=== PATIENT | female | born 1955 | race Caucasian/White ===

== ENCOUNTER 2017-03-07 16:53 | Emergency (ER) | payer BC ==
[2017-03-07 16:57] VITALS: RESP 16; O2SAT 96
[2017-03-07] MEDS ORDERED: ONDANSETRON 4 MG/2 ML VIAL IVP ONE (17:04)
[2017-03-07] MEDS ORDERED: NS 1,000 ML IV ONE (17:04)
[2017-03-07] MEDS ORDERED: HYDROmorphONE/DILAUDID 1 MG/ML SYR IVP ONE (17:04)
--- NOTE | 2017-03-07 17:04 | EDPHY ---
H & P Stated Complaint: R sided abd pain HPI/ROS: HPI CHIEF COMPLAINT: Abdominal pain HISTORY OF PRESENT ILLNESS: This patient is a 55-year-old female no significant medical history does not take any daily medications she presents emergency room with 24 hours of right-sided abdominal pain. Describes a dull ache. Tells me she takes a deep breath in hurts the right side of her abdomen. At time she has referred pain to her right shoulder. This started yesterday while flying from [place] to [place]. She lives here. She has not had any vomiting. She did have some diarrhea yesterday. No fever. No chest pain or shortness of breath. No pleuritic pain. No cough. Pain is located right lower quadrant right upper quadrant. Past Medical History: No significant medical history except for fecal incontinence and has a [employer] device to help with sphincter control. Past Surgical History: Denies recent surgery, no abdominal surgeries Social History: Denies daily use of drugs alcohol tobacco products. Family History: Noncontributory ROS REVIEW OF SYSTEMS: A comprehensive 10 point review of systems is otherwise negative aside from elements mentioned in the history of present illness. Exam Constitutional triage nursing summary reviewed, vital signs reviewed, awake/ alert. Eyes normal conjunctivae and sclera, EOMI, PERRLA. HENT normal inspection, atraumatic, moist mucus membranes, no epistaxis, neck supple/ no meningismus, no raccoon eyes. Respiratory clear to auscultation bilaterally, normal breath sounds, no respiratory distress, no wheezing. Cardiovascular rate normal, regular rhythm, no murmur, no edema, distal pulses normal. Gastrointestinal tender palpation right lower quadrant and right upper quadrant,, no rebound, no guarding, normal bowel sounds, no distension, no pulsatile mass. Genitourinary no CVA tenderness. Musculoskeletal no midline vertebral tenderness, full range of motion, no calf swelling, no tenderness of extremities, no meningismus, good pulses, neurovascularly intact. Skin pink, warm, & dry, no rash, skin atraumatic. Neurologic awake, alert and oriented x 3, AAOx3, moves all 4 extremities equally, motor intact, sensory intact, CN II-XII intact, normal cerebellar, normal vision, normal speech. Psychiatric normal mood/affect. Heme/Lymph/Immune no lymphadenopathy. Differential diagnosis includes but is not limited to and in no particular order : Bowel obstruction, appendicitis, gallbladder disease, diverticulitis, colitis , enteritis, perforated viscus, gastritis, GERD, esophagitis, urinary tract infection, pyelonephritis, kidney stones Medical Decision Making: Plan for this patient IV establishment, IV fluid bolus , check abdominal blood work, CT abdomen pelvis with IV contrast re-evaluate. Re-evaluation: EKG interpretation by me on record in [facility] system. Impression time of EKG 172, this is sinus bradycardia rate of 49 no acute ischemia. Unremarkable EKG. CT scan of the abdomen pelvis with IV contrast The results of the study are this shows possible gastritis, as well as small bowel loops that are filled with fluid concerning for an enteritis. There is minimal free fluid worsens pouch, right pericolic gutter. The gallbladder is contracted cannot get a good visualization of this. Recommend ultrasound which will perform.. The study was read by Dr. Akhtar. I viewed the images myself on the PACS system. 1855: I did re-evaluate the patient she is resting comfortably. No vomiting. Abdomen remains mildly tender but no guarding or peritoneal signs. I did discuss at length about her CT scans most likely enteritis versus gastritis. Contracted gallbladder will perform ultrasound to rule out gallbladder disease however blood work is reassuring. She does not have a fever here. No white count. Electrolytes appropriate, bilirubin normal. Liver enzymes normal. She is supposed to go to [employer] tomorrow for a yoga event I explained she should not and rest bland diet and strict return precautions were given to the patient she understands return immediately to the emergency room she develops worsening abdominal pain, fever, vomiting. 1951: Re-evaluation patient resting comfortably at this time. Back from ultrasound. Ultrasound is unremarkable. Discussed workup here in emergency room blood work CT scan and ultrasound. Understands that if she has worsening abdominal pain fever vomiting she needs return to the emergency room. Source: Patient - Personal History Current Tetanus/Diphtheria Vaccine: Yes Current Tetanus Diphtheria and Acellular Pertussis (TDAP): Yes - Medical/Surgical History Hx Asthma: No Hx Chronic Respiratory Disease: No Hx Diabetes: No Hx Cardiac Disease: No Hx Renal Disease: No Hx Cirrhosis: No Hx Alcoholism: No Hx HIV/AIDS: No Hx Splenectomy or Spleen Trauma: No Other PMH: anxiety - Social History Smoking Status: Never smoked Constitutional: Initial Vital Signs Temperature (C) 36.7 C 03/07/17 16:55 Heart Rate 57 L 03/07/17 16:55 Respiratory Rate 16 03/07/17 16:55 Blood Pressure 92/64 L 03/07/17 16:55 O2 Sat (%) 96 03/07/17 16:55 O2 Delivery Mode Room Air Allergies/Adverse Reactions: Penicillins Allergy (Verified 03/07/17 16:57) Home Medications: Medication Instructions Recorded Ondansetron HCl [Zofran] 4 mg PO Q4-6PRN PRN #10 tablet 03/07/17 Medical Decision Making - Diagnostics Imaging Results: Imaging Impressions Abdomen CT 03/07/17 17:10 Impression: 1. Contracted gallbladder with questionable thickened wall. If the patient is tender in this region then consider right upper quadrant ultrasound to evaluate for possible gallstones and gallbladder tenderness. Rule out cholecystitis. 2. No CT evidence of appendicitis, abscess or bowel obstruction. 3. Thickening associated with the gastric body and antrum. Rule out gastritis or less likely ulcer. 4. Fluid-filled loops of mildly dilated small bowel proximally with some fluid- filled loops of distal small bowel without distention. Rule out enteritis. Findings discussed with Zay Proctor MD at 18:41 hour, 03/07/2017. - Data Points Laboratory Results: Laboratory Results 03/07/17 17:20 03/07/17 17:20 03/07/17 03/07/17 03/07/17 17:20 17:20 17:20 WBC 7.86 10^3/uL 10^3/uL (3.80-9.50) RBC 4.11 10^6/uL L 10^6/uL (4.18-5.33) Hgb 12.9 g/dL g/dL (12.6-16.3) Hct 37.4 % L % (38.0-47.0) MCV 91.0 fL fL (81.5-99.8) MCH 31.4 pg pg (27.9-34.1) MCHC 34.5 g/dL g/dL (32.4-36.7) RDW 12.7 % % (11.5-15.2) Plt Count 173 10^3/uL 10^3/uL (150-400) MPV 10.0 fL fL (8.7-11.7) Neut % (Auto) 64.1 % % (39.3-74.2) Lymph % (Auto) 25.1 % % (15.0-45.0) [place] % (Auto) 7.5 % % (4.5-13.0) Eos % (Auto) 2.7 % % (0.6-7.6) Baso % (Auto) 0.5 % % (0.3-1.7) Nucleat RBC Rel Count 0.0 % % (0.0-0.2) Absolute Neuts (auto) 5.04 10^3/uL 10^3/uL (1.70-6.50) Absolute Lymphs (auto) 1.97 10^3/uL 10^3/uL (1.00-3.00) Absolute Monos (auto) 0.59 10^3/uL 10^3/uL (0.30-0.80) Absolute Eos (auto) 0.21 10^3/uL 10^3/uL (0.03-0.40) Absolute Basos (auto) 0.04 10^3/uL 10^3/uL (0.02-0.10) Absolute Nucleated RBC 0.00 10^3/uL 10^3/uL (0-0.01) Immature Gran % 0.1 % % (0.0-1.1) Immature Gran # 0.01 10^3/uL 10^3/uL (0.00-0.10) PT 12.6 SEC SEC (12.0-15.0) INR 0.95 (0.83-1.16) APTT 26.2 SEC SEC (23.0-38.0) VBG Lactic Acid Sodium 138 mEq/L mEq/L (134-144) Potassium 3.7 mEq/L mEq/L (3.5-5.2) Chloride 102 mEq/L mEq/L (97-110) Carbon Dioxide 25 mEq/l mEq/l (22-31) Anion Gap 11 mEq/L mEq/L (8-16) BUN 11 mg/dL mg/dL (7-23) Creatinine 0.7 mg/dL mg/dL (0.6-1.0) Estimated GFR > 60 Glucose 86 mg/dL mg/dL (70-100) Calcium 9.8 mg/dL mg/dL (8.5-10.4) Total Bilirubin 0.8 mg/dL mg/dL (0.1-1.4) Conjugated Bilirubin 0.2 mg/dL mg/dL (0.0-0.5) Unconjugated Bilirubin 0.6 mg/dL mg/dL (0.0-1.1) AST 36 IU/L IU/L (14-46) ALT 45 IU/L IU/L (9-52) Alkaline Phosphatase 78 IU/L IU/L (38-126) Troponin I < 0.012 ng/mL ng/mL (0-0.034) Total Protein 6.8 g/dL g/dL (6.3-8.2) Albumin 4.4 g/dL g/dL (3.5-5.0) Lipase 57.0 IU/L IU/L (23-300) 03/07/17 17:20 WBC RBC Hgb Hct MCV MCH MCHC RDW Plt Count MPV Neut % (Auto) Lymph % (Auto) [place] % (Auto) Eos % (Auto) Baso % (Auto) Nucleat RBC Rel Count Absolute Neuts (auto) Absolute Lymphs (auto) Absolute Monos (auto) Absolute Eos (auto) Absolute Basos (auto) Absolute Nucleated RBC Immature Gran % Immature Gran # PT INR APTT VBG Lactic Acid 0.8 mmol/L mmol/L (0.7-2.1) Sodium Potassium Chloride Carbon Dioxide Anion Gap BUN Creatinine Estimated GFR Glucose Calcium Total Bilirubin Conjugated Bilirubin Unconjugated Bilirubin AST ALT Alkaline Phosphatase Troponin I Total Protein Albumin Lipase Medications Given: Discontinued Medications Hydromorphone HCl (Dilaudid) 0.5 mg IVP EDNOW ONE Stop: 03/07/17 17:05 Last Admin: 03/07/17 17:58 Dose: Not Given Sodium Chloride (Ns) 1,000 mls @ 0 mls/hr IV EDNOW ONE; Wide Open PRN Reason: Protocol Stop: 03/07/17 17:05 Last Admin: 03/07/17 17:22 Dose: 1,000 mls Ondansetron HCl (Zofran) 4 mg IVP EDNOW ONE Stop: 03/07/17 17:05 Last Admin: 03/07/17 17:59 Dose: Not Given Departure - Departure Disposition: Home, Routine, Self-Care Clinical Impression: Abdominal pain Qualifiers: Abdominal location: generalized Qualified Code(s): R10.84 - Generalized abdominal pain Condition: Good Instructions: Acute Abdominal Pain (ED) Additional Instructions: 1.[place] diet take it easy the next 24-48 hours. 2. Return emergency room if he develops worsening abdominal pain, fever, vomiting. 3. No spicy fatty greasy foods. I do not recommend he go to [place] to the yoga festival until you are feeling better. Referrals: AYUSH CORDOVA [Other] - As per Instructions Prescriptions: Ondansetron HCl [Zofran] 4 mg PO Q4-6PRN PRN #10 tablet PRN Reason: Nausea/Vomiting, Use 1st
--- NOTE | 2017-03-07 17:31 | CPEKG ---
Heart Rate: 49 RR Interval: 1224 P-R Interval: 172 QRSD Interval: 78 QT Interval: 460 QTC Interval: 416 P [place]: 69 QRS [place]: 62 T Wave [place]: 63 EKG Severity - OTHERWISE NORMAL ECG - EKG Impression: SINUS BRADYCARDIA Electronically Signed By: Jose Alfredo Seth 08-Mar-2017 07:46:10
[2017-03-07 17:33] LABS: % IMMATURE GRANULYOCYTES 0.1 % (0.0-1.1); ABSOLUTE IMMATURE GRANULOCYTES 0.01 10^3/uL (0.00-0.10); ADD DIFF? NO; ADD MORPH? NO; ADD SCAN? NO; ATYPICAL LYMPHOCYTE FLAG 20 (0-99); FRAGMENT RBC FLAG 0 (0-99); HEMATOCRIT 37.4 % (38.0-47.0); HEMOGLOBIN 12.9 g/dL (12.6-16.3); LEFT SHIFT FLG 0 (0-99); LIPEMIA HEMOLYSIS FLAG 90 (0-99); MEAN CELL HEMOGLOBIN 31.4 pg (27.9-34.1); MEAN CELL HEMOGLOBIN CONCENTR. 34.5 g/dL (32.4-36.7); PLATELET CLUMPS FLAG 0 (0-99); PLATELET COUNT 173 10^3/uL (150-400); RED BLOOD CELL COUNT 4.11 10^6/uL (4.18-5.33); RED CELL DISTRIBUTION WIDTH 12.7 % (11.5-15.2)
[2017-03-07 17:46] LABS: ALANINE AMINOTRANSFERASE 45 IU/L (9-52); ALBUMIN 4.4 g/dL (3.5-5.0); ALKALINE PHOSPHATASE 78 IU/L (38-126); ANION GAP 11 mEq/L (8-16); ASPARTATE AMINOTRANSFERASE 36 IU/L (14-46); BILIRUBIN,TOTAL 0.8 mg/dL (0.1-1.4); BILIRUBIN-CONJUGATED 0.2 mg/dL (0.0-0.5); BILIRUBIN-UNCONJUGATED 0.6 mg/dL (0.0-1.1); CALCIUM 9.8 mg/dL (8.5-10.4); CARBON DIOXIDE 25 mEq/l (22-31); CHLORIDE 102 mEq/L (97-110); CREATININE 0.7 mg/dL (0.6-1.0); GLOMERULAR FILTRATION RATE > 60; GLUCOSE 86 mg/dL (70-100); POTASSIUM 3.7 mEq/L (3.5-5.2); SODIUM 138 mEq/L (134-144); TOTAL PROTEIN 6.8 g/dL (6.3-8.2)
[2017-03-07 17:49] LABS: INR 0.95 (0.83-1.16); PROTIME(PATIENT) 12.6 SEC (12.0-15.0)
[2017-03-07 17:50] LABS: APTT 26.2 SEC (23.0-38.0)
[2017-03-07 17:57] LABS: TROPONIN I < 0.012 ng/mL (0-0.034)
[2017-03-07] MEDS ORDERED: IOPAMIDOL (ISOVUE-300) 100 ML BTL ONE (18:04)
[2017-03-07 20:12] VITALS: BP 105/62; PULSE 49; TEMP 98.2
== END 2017-03-07 20:11 | disposition home or self-care (01) ==
DX: R10.84 Generalized abdominal pain (principal); E86.9 Volume depletion, unspecified
CPT/HCPCS: Q9967

== ENCOUNTER 2017-03-08 21:48 | Emergency (ER) | payer BC ==
[2017-03-08 22:05] VITALS: RESP 18; TEMP 98.2
[2017-03-08] MEDS ORDERED: ONDANSETRON 4 MG/2 ML VIAL IVP ONE (22:28)
[2017-03-08] MEDS ORDERED: KETOROLAC 30 MG/1 ML SDV IVP ONE (22:28)
[2017-03-08] MEDS ORDERED: NS 1,000 ML IV ONE (22:28)
--- NOTE | 2017-03-08 22:30 | EDPHY ---
H & P Stated Complaint: abd pain and N continued with frontal PETERS Time Seen by Provider: 03/08/17 22:13 HPI/ROS: HPI The patient presents with diffuse abdominal pain which began yesterday and is throughout her abdomen, described as intense, sharp, in her lower abdomen and also in her right upper quadrant. This is associated with nausea and generalized anorexia. She does not have any vomiting, diarrhea, fevers or chills. She is complaining of a mild frontal headache as well. She was seen in the emergency room yesterday for similar symptoms. She had a CT scan of her abdomen pelvis with IV contrast which demonstrated gastritis and enteritis. She had a right upper quadrant ultrasound that was unremarkable. She felt well enough to go home, however her pain has returned.. REVIEW OF SYSTEMS Constitutional: No fever, no chills. Eyes: No discharge. ENT: No sore throat. Cardiovascular: No chest pain, no palpitations. Respiratory: No cough, no shortness of breath. Gastrointestinal: See HPI Genitourinary: No hematuria. Musculoskeletal: No back pain. Skin: No rashes. Neurological: No headache. PMHx: Healthy Soc Hx: Visiting from [place] PHYSICAL General Appearance: Alert, no distress Eyes: Pupils equal and round no pallor or injection ENT, Mouth: Mucous membranes moist Respiratory: There are no retractions, lungs are clear to auscultation Cardiovascular: Regular rate and rhythm Gastrointestinal: Abdomen is soft with mild tenderness in the lower quadrants, no masses, bowel sounds normal Neurological: A&O, moves all extremities Skin: Warm and dry, no rashes Musculoskeletal: Neck is supple non tender Extremities: symmetrical, full range of motion Psychiatric: Patient is oriented X 3, there is no agitation Source: Patient Exam Limitations: No limitations - Personal History Current Tetanus/Diphtheria Vaccine: Yes Tetanus Vaccine Date: 2013 - Medical/Surgical History Hx Asthma: No Hx Chronic Respiratory Disease: No Hx Diabetes: No Hx Cardiac Disease: No Hx Renal Disease: No Hx Cirrhosis: No Hx Alcoholism: No Hx HIV/AIDS: No Hx Splenectomy or Spleen Trauma: No Other PMH: anxiety - Social History Smoking Status: Never smoked Constitutional: Initial Vital Signs Temperature (C) 36.8 C 03/08/17 22:03 Heart Rate 60 03/08/17 22:03 Respiratory Rate 18 03/08/17 22:03 Blood Pressure 89/46 L 03/08/17 22:03 O2 Sat (%) 100 03/08/17 22:03 O2 Delivery Mode Room Air Allergies/Adverse Reactions: Penicillins Allergy (Verified 03/07/17 16:57) Home Medications: Medication Instructions Recorded Ondansetron HCl [Zofran] 4 mg PO Q4-6PRN PRN #10 tablet 03/07/17 Famotidine [Pepcid 20 MG (*)] 20 mg PO BID #30 tab 03/09/17 Medical Decision Making - Diagnostics Imaging Results: Imaging Impressions Chest X-Ray 03/08/17 22:27 Impression: No acute findings in the chest. Chest/Thorax CTA 03/08/17 23:49 Impression: 1. No visible pulmonary embolus. 2. Bronchitis with trace effusions. 3. Additional findings as above. Findings discussed with Roro Palmer MD 03/09/2017 at 0:21. Imaging: Discussed imaging studies w/ call center director Radiologist, I viewed and interpreted images myself Differential Diagnosis: This is a healthy 61-year-old female who presents with recurrent diffuse abdominal pain, had an evaluation yesterday in the ER including labs and imaging all relatively unremarkable, enteritis and gastritis demonstrated on her CT scan. Differential diagnosis includes gastritis or enteritis, pulmonary embolism, pleural effusion, ovarian cyst. In the emergency room, the patient was given IV fluids and Zofran. She was given a dose of Toradol with some improvement in her symptoms. Labs were checked and were unremarkable except for D-dimer which was elevated. Because of her recent travel and her symptoms, CT scan of her chest was performed which was normal. I have explained this to her. She will be discharged with instructions for hydration. I feel her symptoms likely stem from a GI process. - Data Points Laboratory Results: Laboratory Results 03/08/17 22:40 03/08/17 22:40 03/09/17 03/08/17 03/08/17 00:30 22:40 22:40 WBC RBC Hgb Hct MCV MCH MCHC RDW Plt Count MPV Neut % (Auto) Lymph % (Auto) [place] % (Auto) Eos % (Auto) Baso % (Auto) Nucleat RBC Rel Count Absolute Neuts (auto) Absolute Lymphs (auto) Absolute Monos (auto) Absolute Eos (auto) Absolute Basos (auto) Absolute Nucleated RBC Immature Gran % Immature Gran # D-Dimer 1.20 ug/mLFEU H ug/mLFEU (0.00-0.50) Sodium 137 mEq/L mEq/L (134-144) Potassium 3.4 mEq/L L mEq/L (3.5-5.2) Chloride 103 mEq/L mEq/L (97-110) Carbon Dioxide 24 mEq/l mEq/l (22-31) Anion Gap 10 mEq/L mEq/L (8-16) BUN 16 mg/dL mg/dL (7-23) Creatinine 0.8 mg/dL mg/dL (0.6-1.0) Estimated GFR > 60 Glucose 101 mg/dL H mg/dL (70-100) Calcium 9.1 mg/dL mg/dL (8.5-10.4) Total Bilirubin 1.0 mg/dL mg/dL (0.1-1.4) Conjugated Bilirubin 0.3 mg/dL mg/dL (0.0-0.5) Unconjugated Bilirubin 0.7 mg/dL mg/dL (0.0-1.1) AST 38 IU/L IU/L (14-46) ALT 43 IU/L IU/L (9-52) Alkaline Phosphatase 81 IU/L IU/L (38-126) Total Protein 6.3 g/dL g/dL (6.3-8.2) Albumin 4.0 g/dL g/dL (3.5-5.0) Lipase 34.0 IU/L IU/L (23-300) Urine Color PALE YELLOW Urine Appearance CLEAR Urine pH 6.0 (5.0-7.5) Ur Specific [place] 1.034 H (1.002-1.030) Urine Protein NEGATIVE (NEGATIVE) Urine Ketones TRACE H (NEGATIVE) Urine Blood NEGATIVE (NEGATIVE) Urine Nitrate NEGATIVE (NEGATIVE) Urine Bilirubin NEGATIVE (NEGATIVE) Urine Urobilinogen NEGATIVE EU EU (0.2-1.0) Ur Leukocyte Esterase NEGATIVE (NEGATIVE) Urine Glucose NEGATIVE (NEGATIVE) 03/08/17 22:40 WBC 8.65 10^3/uL 10^3/uL (3.80-9.50) RBC 3.92 10^6/uL L 10^6/uL (4.18-5.33) Hgb 12.2 g/dL L g/dL (12.6-16.3) Hct 35.9 % L % (38.0-47.0) MCV 91.6 fL fL (81.5-99.8) MCH 31.1 pg pg (27.9-34.1) MCHC 34.0 g/dL g/dL (32.4-36.7) RDW 13.0 % % (11.5-15.2) Plt Count 142 10^3/uL L 10^3/uL (150-400) MPV 10.1 fL fL (8.7-11.7) Neut % (Auto) 79.1 % H % (39.3-74.2) Lymph % (Auto) 12.0 % L % (15.0-45.0) [place] % (Auto) 6.7 % % (4.5-13.0) Eos % (Auto) 1.8 % % (0.6-7.6) Baso % (Auto) 0.1 % L % (0.3-1.7) Nucleat RBC Rel Count 0.0 % % (0.0-0.2) Absolute Neuts (auto) 6.83 10^3/uL H 10^3/uL (1.70-6.50) Absolute Lymphs (auto) 1.04 10^3/uL 10^3/uL (1.00-3.00) Absolute Monos (auto) 0.58 10^3/uL 10^3/uL (0.30-0.80) Absolute Eos (auto) 0.16 10^3/uL 10^3/uL (0.03-0.40) Absolute Basos (auto) 0.01 10^3/uL L 10^3/uL (0.02-0.10) Absolute Nucleated RBC 0.00 10^3/uL 10^3/uL (0-0.01) Immature Gran % 0.3 % % (0.0-1.1) Immature Gran # 0.03 10^3/uL 10^3/uL (0.00-0.10) D-Dimer Sodium Potassium Chloride Carbon Dioxide Anion Gap BUN Creatinine Estimated GFR Glucose Calcium Total Bilirubin Conjugated Bilirubin Unconjugated Bilirubin AST ALT Alkaline Phosphatase Total Protein Albumin Lipase Urine Color Urine Appearance Urine pH Ur Specific [place] Urine Protein Urine Ketones Urine Blood Urine Nitrate Urine Bilirubin Urine Urobilinogen Ur Leukocyte Esterase Urine Glucose Medications Given: Discontinued Medications Sodium Chloride (Ns) 1,000 mls @ 0 mls/hr IV ONCE ONE; Wide Open PRN Reason: Protocol Stop: 03/08/17 22:29 Last Admin: 03/08/17 22:47 Dose: 1,000 mls Ketorolac Tromethamine (Toradol) 15 mg IVP EDNOW ONE Stop: 03/08/17 22:29 Last Admin: 03/08/17 23:00 Dose: 15 mg Ondansetron HCl (Zofran) 4 mg IVP EDNOW ONE Stop: 03/08/17 22:29 Last Admin: 03/08/17 23:01 Dose: 4 mg Departure - Departure Disposition: Home, Routine, Self-Care Clinical Impression: Abdominal pain Qualifiers: Abdominal location: generalized Qualified Code(s): R10.84 - Generalized abdominal pain Condition: Good Instructions: Enteritis (ED) Additional Instructions: The cause of your pain could be due to gastritis or enteritis which was found on her CT scan performed yesterday. If your pain become severe, you should return to the emergency room. Otherwise please make sure to drink plenty of fluids and get rest. You should follow up with your primary care doctor when he returned home. Referrals: AYUSH HENDERSON [Other] - As per Instructions Prescriptions: Famotidine [Pepcid 20 MG (*)] 20 mg PO BID #30 tab
[2017-03-08 22:58] LABS: % IMMATURE GRANULYOCYTES 0.3 % (0.0-1.1); ABSOLUTE IMMATURE GRANULOCYTES 0.03 10^3/uL (0.00-0.10); ADD DIFF? NO; ADD MORPH? NO; ADD SCAN? NO; ATYPICAL LYMPHOCYTE FLAG 30 (0-99); FRAGMENT RBC FLAG 0 (0-99); HEMATOCRIT 35.9 % (38.0-47.0); HEMOGLOBIN 12.2 g/dL (12.6-16.3); LEFT SHIFT FLG 0 (0-99); LIPEMIA HEMOLYSIS FLAG 90 (0-99); MEAN CELL HEMOGLOBIN 31.1 pg (27.9-34.1); MEAN CELL VOLUME 91.6 fL (81.5-99.8); MEAN PLATELET VOLUME 10.1 fL (8.7-11.7); PLATELET CLUMPS FLAG 10 (0-99); PLATELET COUNT 142 10^3/uL (150-400); RED BLOOD CELL COUNT 3.92 10^6/uL (4.18-5.33)
[2017-03-08 23:09] LABS: ALANINE AMINOTRANSFERASE 43 IU/L (9-52); ALKALINE PHOSPHATASE 81 IU/L (38-126); ANION GAP 10 mEq/L (8-16); ASPARTATE AMINOTRANSFERASE 38 IU/L (14-46); BILIRUBIN-CONJUGATED 0.3 mg/dL (0.0-0.5); BILIRUBIN-UNCONJUGATED 0.7 mg/dL (0.0-1.1); CALCIUM 9.1 mg/dL (8.5-10.4); CARBON DIOXIDE 24 mEq/l (22-31); CHLORIDE 103 mEq/L (97-110); CREATININE 0.8 mg/dL (0.6-1.0); GLOMERULAR FILTRATION RATE > 60; GLUCOSE 101 mg/dL (70-100); POTASSIUM 3.4 mEq/L (3.5-5.2); SODIUM 137 mEq/L (134-144); TOTAL PROTEIN 6.3 g/dL (6.3-8.2)
[2017-03-08] MEDS ORDERED: IOPAMIDOL (ISOVUE 370) 100 ML BTL IV ONE (23:52)
[2017-03-09 00:37] LABS: COLOR PALE YELLOW; LEUKOCYTE ESTERASE,URINE NEGATIVE (NEGATIVE); NITRITE,URINE NEGATIVE (NEGATIVE)
[2017-03-09 01:24] VITALS: BP 92/42; PULSE 63; O2SAT 93
== END 2017-03-09 01:24 | disposition home or self-care (01) ==
DX: R10.84 Generalized abdominal pain (principal); K52.9 Noninfective gastroenteritis and colitis, unspecified
CPT/HCPCS: 96374; J1885; J2405; Q9967

== ENCOUNTER 2017-03-13 12:48 | Emergency (ER) | payer BC ==
[2017-03-13 12:58] VITALS: RESP 16
--- NOTE | 2017-03-13 14:10 | EDPHY ---
H & P Stated Complaint: Here x 2 last week for same c/o;wants HIDAA scan today Time Seen by Provider: 03/13/17 13:41 HPI/ROS: CHIEF COMPLAINT: Abdominal pain HISTORY OF PRESENT ILLNESS: This is a generally healthy 61-year-old who returns to the emergency room for the 3rd time with continued right upper quadrant abdominal pain. She was seen for this on March 07 and again on March 09. During those visits she had a gallbladder ultrasound that showed small amount of ascites around the liver, no other abnormalities. She had a CT of the abdomen and pelvis which showed some evidence of gastritis and/or enteritis. She also had a CT angiogram of her chest performed for an elevated D -dimer. This study was normal. She is taking Pepcid, as advised. Her pain is primarily in the upper abdomen, worse on the right. It is a sharp pain. It awakens her in the morning. The pain is intermittent. She is not taking any pain medication. Eating makes the pain worse. She has not had nausea or vomiting. She had diarrhea x2 1 week ago, none since. She now feels constipated and has not had a bowel movement for a few days. She has a spinal implant for fecal incontinence thought to be secondary to childbirth and marathon running. She also has some stress urinary incontinence. She denies dysuria, hematuria, urgency or frequency. She has not had recent fever. Her family history is positive for ulcerative colitis in her mother who has had an ileostomy and Crohn's in her aunt. A grandmother had breast cancer. REVIEW OF SYSTEMS: A ten point review of systems was performed and is negative with the exception of the items mentioned in the HPI. Source: Patient, Old records - Personal History Tetanus Vaccine Date: 2013 - Medical/Surgical History PMH: 1. Spinal implant for treatment of fecal incontinence 2. 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 She has 2 daughters in the area. She has not established care with a primary care physician yet. - Physical Exam Exam: General Appearance: Alert. Vital signs reviewed. Eyes: Pupils equal and round, no conjunctival injection, no discharge. Anicteric. ENT, Mouth: Mucous membranes are moist, no oropharyngeal erythema or edema. Neck: No lymphadenopathy, supple. Respiratory: Lungs are clear to auscultation; no wheezes, rales, or rhonchi. Cardiovascular: Regular rate and rhythm; no murmur, rub, or gallop. Gastrointestinal: Abdomen is soft with mild right upper quadrant and midepigastric tenderness, no masses or organomegaly, bowel sounds normal. No peritoneal signs. Skin: Warm and dry, no rashes on exposed skin, normal color. Back: Nontender to palpation over the thoracolumbar spine. No CVAT. Extremities: No lower extremity edema, no calf tenderness or swelling. Neurological: Alert and oriented. Moving all four extremities easily and equally. Psychiatric: Normal affect. Constitutional: Initial Vital Signs Temperature (C) 36.7 C 03/13/17 12:50 Heart Rate 52 L 03/13/17 12:50 Respiratory Rate 16 03/13/17 12:50 Blood Pressure 135/78 H 03/13/17 12:50 O2 Sat (%) 97 03/13/17 12:50 O2 Delivery Mode Room Air Allergies/Adverse Reactions: Penicillins Allergy (Intermediate, Verified 03/13/17 12:53) Hives Home Medications: Medication Instructions Recorded Ondansetron HCl [Zofran] 4 mg PO Q4-6PRN PRN #10 tablet 03/07/17 Famotidine [Pepcid 20 MG (*)] 20 mg PO BID #30 tab 03/09/17 Medical Decision Making ED Course/Re-evaluation: Continued right upper quadrant abdominal pain, present for the past week. I reviewed the records of her previous 2 emergency department visits. There is nothing to suggest a pulmonary source for her pain and she has had a recent normal chest CTA. I spoke with the surgeon on duty, who agrees that HIDA scan can be performed as an outpatient in this situation. She is not febrile, dehydrated, toxic appearing. There has been no change in her symptoms. She is able to eat and drink--no vomiting or diarrhea. I have written RX for OP HIDA scan and follow up with Dr. Harish Myers. She is given a referral for local PCP. Differential Diagnosis: Abdominal pain including but not limited to appendicitis, biliary colic, pancreatitis, ascending cholangitis, cholecystitis, gastritis and urinary tract infection. Departure - Departure Disposition: Home, Routine, Self-Care Clinical Impression: Abdominal pain Qualifiers: Abdominal location: right upper quadrant Qualified Code(s): R10.11 - Right upper quadrant pain Condition: Good Instructions: Abdominal Pain (ED) Additional Instructions: Call nuclear medicine and arrange an outpatient HIDA scan. You will need to schedule this appointment your self, as there is lots of information they need that I cannot provide. I am referring you to Dr. Harish Myers, surgeon. You should see him in his office after you have the HIDA scan done. You can schedule an appointment in his office as soon as you know when the HIDA scan will be performed. I am also referring you to Dr. Alissa Cabrera for primary care. If you develop fever, vomiting, worsening abdominal pain, any new or concerning symptoms please return for another evaluation. Referrals: Alissa Cabrera MD [Medical Doctor] - As per Instructions Harish Myers MD [Medical Doctor] - As per Instructions
[2017-03-13 16:12] VITALS: BP 126/75; PULSE 47; TEMP 98.2; O2SAT 99
== END 2017-03-13 16:11 | disposition home or self-care (01) ==
DX: R10.11 Right upper quadrant pain (principal)

== ENCOUNTER → 2017-03-20 | Outpatient (CLI) | payer BC | LOC: FIMAGING 09:17 | PROVIDERS: ATTEND Internal Medicine | DX: R10.10 Upper abdominal pain, unspecified (principal); R11.0 Nausea | CPT/HCPCS: 78227; A9537 ==

== ENCOUNTER → 2017-10-25 | Outpatient (CLI) | payer OTHER | LOC: BMCIMAGING 07:52 | PROVIDERS: ATTEND Internal Medicine | DX: Z12.31 Encounter for screening mammogram for malignant neoplasm of breast (principal); Z80.3 Family history of malignant neoplasm of breast ==

== ENCOUNTER → 2018-01-16 | Outpatient (CLI) | payer OTHER | LOC: BMCIMAGING 14:06 | PROVIDERS: ATTEND Internal Medicine | DX: Z13.820 Encounter for screening for osteoporosis (principal); M81.0 Age-related osteoporosis without current pathological fracture; K51.90 Ulcerative colitis, unspecified, without complications; Z78.0 Asymptomatic menopausal state ==

== ENCOUNTER → 2018-11-27 | Outpatient (CLI) | payer OTHER | LOC: BMCIMAGING 12:17 | PROVIDERS: ATTEND Internal Medicine | DX: Z12.31 Encounter for screening mammogram for malignant neoplasm of breast (principal); Z80.3 Family history of malignant neoplasm of breast ==